=== PATIENT | male | born 1960 | race Caucasian/White ===

== ENCOUNTER 2018-04-16 09:07 | Emergency (ER) | payer MEDICAID ==
--- NOTE | 2018-04-16 09:38 | EDPHY ---
H & P Stated Complaint: hip replacement at [facility] 03/25 now with pain redness Time Seen by Provider: 04/16/18 09:17 HPI/ROS: CHIEF COMPLAINT: Left hip pain HISTORY OF PRESENT ILLNESS: The patient is a 57-year-old morbidly obese man who had this left hip replaced by Dr. Keith at [facility] 3 weeks ago. He states that he had been recovering well but has had increasing pain over the last 2 days. He thought that he simply over did it because he went on a further walk than usual 2 days ago. However he is becoming concerned about infection. There is some slight red streaking at his wound site which she states has been there are the entire time. He has not had any purulent drainage. He has not had a fever or sweats. He has experienced increased pain. REVIEW OF SYSTEMS: Constitutional: denies: chills, fever, recent illness, recent injury EENTM: denies: blurred vision, double vision, nose congestion Respiratory: denies: cough, shortness of breath Cardiac: denies: chest pain, irregular heart rate, lightheadedness, palpitations Gastrointestinal/Abdominal: denies: abdominal pain, diarrhea, nausea, vomiting, blood streaked stools Genitourinary: denies: dysuria, frequency, hematuria, pain Musculoskeletal: See HPI Skin: denies: lesions, rash, jaundice, bruising Neurological: denies: headache, numbness, paresthesia, tingling, dizziness, weakness Hematologic/Lymphatic: denies: blood clots, easy bleeding, easy bruising Immunologic/allergic: denies: HIV/AIDS, transplant EXAM: GENERAL: Morbidly obese, moderate distress HEAD: Atraumatic, normocephalic. EYES: Pupils equal round and reactive to light, extraocular movements intact, sclera anicteric, conjunctiva are normal. ENT: TMs normal, nares patent, oropharynx clear without exudates. Moist mucous membranes. NECK: Normal range of motion, supple without lymphadenopathy or JVD. LUNGS: Breath sounds clear to auscultation bilaterally and equal. No wheezes rales or rhonchi. HEART: Regular rate and rhythm without murmurs, rubs or gallops. ABDOMEN: Soft, nontender, normoactive bowel sounds. No guarding, no rebound. No masses appreciated. BACK: No CVA tenderness, no spinal tenderness, step-offs or deformities EXTREMITIES: Normal range of motion, no pitting or edema. No clubbing or cyanosis. NEUROLOGICAL: Cranial nerves II through XII grossly intact. Normal speech, normal gait. 5/5 strength, normal movement in all extremities, normal sensation PSYCH: Normal mood, normal affect. SKIN: Incision clean and dry and intact, slight erythema surrounding, firm but no fluctuance. Source: Patient - Personal History Current Tetanus Diphtheria and Acellular Pertussis (TDAP): Unsure - Medical/Surgical History Hx Asthma: No Hx Chronic Respiratory Disease: No Hx Diabetes: Yes Hx Cardiac Disease: No Hx Renal Disease: No Hx Cirrhosis: No Hx Alcoholism: No Hx HIV/AIDS: No Hx Splenectomy or Spleen Trauma: No Other PMH: HTN, arthritis, acid reflux, hernia l hip replacement - Family History Significant Family History: No pertinent family hx - Social History Smoking Status: Former smoker Alcohol Use: Sober Constitutional: Initial Vital Signs Temperature (C) 36.4 C 04/16/18 09:13 Heart Rate 100 04/16/18 09:13 Respiratory Rate 20 04/16/18 09:13 Blood Pressure 128/86 H 04/16/18 09:13 O2 Sat (%) 92 04/16/18 09:13 O2 Delivery Mode Room Air O2 (L/minute) 2 Allergies/Adverse Reactions: No Known Allergies Allergy (Verified 04/16/18 09:10) Home Medications: Medication Instructions Recorded Atorvastatin Calcium 40 mg PO 06/28/16 Cyclobenzaprine [Flexeril 10 MG 06/28/16 (*)] Hydrochlorothiazide [HCTZ (*)] 25 mg PO DAILY 06/28/16 Lisinopril [Zestril 40 mg (*)] 40 mg PO DAILY 06/28/16 Metformin HCl [Metformin 1000 mg] 1,000 mg PO 06/28/16 Tramadol HCl 50 mg PO 06/28/16 Medical Decision Making - Diagnostics Imaging Results: Imaging Impressions Extremity Ultrasound 04/16/18 09:30 Impression: 1. Postoperative collections compatible with hematoma or seroma superficial to the left hip as well as underlying the incision. Abscess/infectious etiology is felt to be less likely. If there is a high clinical concern for infection then consider ultrasound-guided aspiration for further characterization. Findings discussed with Filemon Sebastian M.D. at 10:46 hour, 04/16/2018. Extremity CT 04/16/18 09:35 Impression: 1. 3 collections over the left upper thigh anterolaterally as detailed above. These could all represent postoperative hematoma collections or seromas versus possibility of abscess. Clinical correlation recommended. If indicated, these can be aspirated with ultrasound guidance. 2. Left total hip replacement in good position and alignment. No fractures seen. Findings discussed with Filemon Sebastian M.D. at 12:53 hour, 04/16/2018. Imaging: Discussed imaging studies w/ call center representative Radiologist ED Course/Re-evaluation: 12:14 p.m. the patient's lab work is very reassuring overall. His ultrasound shows small fluid collections that are unlikely to be infections. I spoke with Dr. Keith's PA, Lauren, who agrees that further workup at this time is not indicated. He does recommend x-ray to ensure that there is no fracture. This will be accomplished with the CT scan which was ordered originally. He would like to follow up with the patient tomorrow the next day. He does not think that ultrasound-guided needle aspiration is indicated. patient is happy with this plan and declines further workup or testing at this time. 12:50 p.m. we discussed the patient's lab and imaging results. He is relieved. He is feeling much better. I encouraged rest and icing and he will follow up with his orthopedist in the next day or 2. He is eager to go home. Differential Diagnosis: Partial list of the Differential diagnosis considered include but were not limited to; surgical pain, seroma, hematoma, infection and although unlikely based on the history and physical exam, I also considered fracture, dislocation. I discussed these differential diagnoses and the plan with the patient as well as the usual and expected course. The patient understands that the diagnosis is provisional and that in medicine we are not always correct and that further workup is often warranted. Usual and customary warnings were given. All of the patient's questions were answered. The patient was instructed to return to the emergency department should the symptoms at all worsen or return, otherwise to followup with the physician as we discussed. - Data Points Laboratory Results: Laboratory Results 04/16/18 09:43 04/16/18 09:43 04/16/18 04/16/18 04/16/18 09:43 09:43 09:43 WBC RBC Hgb Hct MCV MCH MCHC RDW Plt Count MPV Neut % (Auto) Lymph % (Auto) Ocean % (Auto) Eos % (Auto) Baso % (Auto) Nucleat RBC Rel Count Absolute Neuts (auto) Absolute Lymphs (auto) Absolute Monos (auto) Absolute Eos (auto) Absolute Basos (auto) Absolute Nucleated RBC Immature Gran % Immature Gran # ESR PT 13.5 SEC SEC (12.0-15.0) INR 1.01 (0.83-1.16) APTT 25.7 SEC SEC (23.0-38.0) VBG Lactic Acid 2.5 mmol/L H mmol/L (0.7-2.1) Sodium 137 mEq/L mEq/L (135-145) Potassium 4.4 mEq/L mEq/L (3.3-5.0) Chloride 100 mEq/L mEq/L (97-110) Carbon Dioxide 27 mEq/l mEq/l (22-31) Anion Gap 10 mEq/L mEq/L (8-16) BUN 9 mg/dL mg/dL (7-23) Creatinine 0.7 mg/dL mg/dL (0.7-1.3) Estimated GFR > 60 Glucose 109 mg/dL H mg/dL (70-100) Calcium 8.8 mg/dL mg/dL (8.5-10.4) C-Reactive Protein 7.3 mg/L mg/L (<10.0) 04/16/18 09:43 WBC 8.77 10^3/uL 10^3/uL (3.80-9.50) RBC 4.92 10^6/uL 10^6/uL (4.40-6.38) Hgb 14.4 g/dL g/dL (13.7-17.5) Hct 41.4 % % (40.0-51.0) MCV 84.1 fL fL (81.5-99.8) MCH 29.3 pg pg (27.9-34.1) MCHC 34.8 g/dL g/dL (32.4-36.7) RDW 14.6 % % (11.5-15.2) Plt Count 311 10^3/uL 10^3/uL (150-400) MPV 8.8 fL fL (8.7-11.7) Neut % (Auto) 64.9 % % (39.3-74.2) Lymph % (Auto) 22.0 % % (15.0-45.0) Ocean % (Auto) 7.4 % % (4.5-13.0) Eos % (Auto) 4.9 % % (0.6-7.6) Baso % (Auto) 0.3 % % (0.3-1.7) Nucleat RBC Rel Count 0.0 % % (0.0-0.2) Absolute Neuts (auto) 5.69 10^3/uL 10^3/uL (1.70-6.50) Absolute Lymphs (auto) 1.93 10^3/uL 10^3/uL (1.00-3.00) Absolute Monos (auto) 0.65 10^3/uL 10^3/uL (0.30-0.80) Absolute Eos (auto) 0.43 10^3/uL H 10^3/uL (0.03-0.40) Absolute Basos (auto) 0.03 10^3/uL 10^3/uL (0.02-0.10) Absolute Nucleated RBC 0.00 10^3/uL 10^3/uL (0-0.01) Immature Gran % 0.5 % % (0.0-1.1) Immature Gran # 0.04 10^3/uL 10^3/uL (0.00-0.10) ESR 19 MM/HR MM/HR (0-20) PT INR APTT VBG Lactic Acid Sodium Potassium Chloride Carbon Dioxide Anion Gap BUN Creatinine Estimated GFR Glucose Calcium C-Reactive Protein Departure - Departure Disposition: Home, Routine, Self-Care Clinical Impression: Left hip pain Condition: Fair Instructions: Hip Pain (ED) Referrals: AGNES MULLEN [Other] - As per Instructions Dr Sagar [Other] - 1-2 days without fail
[2018-04-16 09:57] LABS: PLATELET COUNT 311 10^3/uL (150-400)
[2018-04-16 10:06] LABS: INR 1.01 (0.83-1.16); PROTIME(PATIENT) 13.5 SEC (12.0-15.0)
[2018-04-16] MEDS ORDERED: IOPAMIDOL (ISOVUE-300) 100 ML BTL ONE ×2 (10:54→11:51)
[2018-04-16 13:04] VITALS: BP 126/96
== END 2018-04-16 13:19 | disposition home or self-care (01) ==
DX: G89.18 Other acute postprocedural pain (principal); M25.552 Pain in left hip; I10 Essential (primary) hypertension; E11.9 Type 2 diabetes mellitus without complications; Z79.84 Long term (current) use of oral hypoglycemic drugs; Z87.891 Personal history of nicotine dependence
CPT/HCPCS: Q9967

== ENCOUNTER 2018-11-28 08:20 | Day surgery (SDC) | payer MEDICAID ==
[2018-11-28] MEDS ORDERED: ceFAZolin 2 GM/DEXTROSE 100 ML IV ONE (09:40)
[2018-11-28] MEDS ORDERED: ACETAMINOPHEN 500 MG TAB PO ONE (09:40)
[2018-11-28] MEDS ORDERED: BUPIVACAINE 0.5% 30 ML SDV ONE (09:46)
[2018-11-28] MEDS ORDERED: LR 1,000 ML IV ONE (09:46)
[2018-11-28] MEDS ORDERED: ROPIVACAINE HCL 20 MG/10 ML INJ EP ONE (09:46)
[2018-11-28] MEDS ORDERED: CEFAZOLIN 2 GM/DEXTROSE/100 ML BAG IV ONE (10:01)
--- NOTE | 2018-11-28 10:39 | PDHPUP ---
History & Physical Update H&P update statement: This history and physical update is based on an assessment of the patient which was completed after admission or registration (within 24 hours), but prior to the surgery/procedure. H&P update: H&P reviewed & patient examined, no change in patient's condition since H&P completed
[2018-11-28] MEDS ORDERED: MIDAZOLAM 2 MG/2 ML VIAL IVP ONE (10:43)
--- NOTE | 2018-11-28 10:43 | PDANEPAE ---
ANE History of Present Illness Left carpel tunnel ANE Past Medical History - Cardiovascular History Hx Hypertension: Yes Hx Arrhythmias: No Hx Chest Pain: No Hx Coronary Artery / Peripheral Vascular Disease: No Hx CHF / Valvular Disease: No Hx Palpitations: No - Pulmonary History Hx COPD: No Hx Asthma/Reactive Airway Disease: No Hx Recent Upper Respiratory Infection: No Hx Oxygen in Use at Home: No Hx Sleep Apnea: No Sleep Apnea Screening Result - Last Documented: Positive Pulmonary History Comment: EXERCISE INDUCED ASTHMA HAS INHALER SELDOM USED - Neurologic History Hx Cerebrovascular Accident: No Hx Seizures: No Hx Dementia: No - Endocrine History Hx Diabetes: Yes Endocrine History Comment: NIDDM. NOCTURIA - Renal History Hx Renal Disorders: No - Liver History Hx Hepatic Disorders: No - Neurological & Psychiatric Hx Hx Neurological and Psychiatric Disorders: No - Cancer History Hx Cancer: No - Congenital Disorder History Hx Congenital Disorders: No - GI History Hx Gastrointestinal Disorders: Yes Gastrointestinal History Comment: GERD - Other Health History Other Health History: OBESITY. OSTEOARTHRITIS. N/T LINDA FEET. SPINAL STENOSIS. MISSING TEEETH - Chronic Pain History Chronic Pain: Yes (RT ANKLE,FEET,RT HIP) - Surgical History Prior Surgeries: LUMBAR FUSION 2016. LT TOTAL HIP 2018. Hernia at age 7 ANE Review of Systems Review of Systems: - Exercise capacity METS (RN): 4 METS ANE Patient History - Allergies Allergies/Adverse Reactions: No Known Allergies Allergy (Verified 04/16/18 09:10) - Home Medications Home Medications: Cyclobenzaprine [Flexeril 10 MG (*)] BID 06/28/16 [Last Taken Unknown] Hydrochlorothiazide [HCTZ (*)] 25 mg PO DAILY 06/28/16 [Last Taken Unknown] Lisinopril [Zestril 40 mg (*)] 40 mg PO DAILY 06/28/16 [Last Taken Unknown] Metformin HCl [Metformin 1000 mg] 1,000 mg PO BID 06/28/16 [Last Taken Unknown] Tramadol HCl 50 mg PO BID 06/28/16 [Last Taken Unknown] Amlodipine Besylate DAILY 11/21/18 [Last Taken Unknown] Gabapentin BID 11/21/18 [Last Taken Unknown] Ibuprofen BID 11/21/18 [Last Taken Unknown] Omeprazole DAILY 11/21/18 [Last Taken Unknown] - NPO status NPO Status: no food or drink >8 hours NPO Since - Liquids (Date): 11/28/18 NPO Since - Liquids (Time): 06:30 NPO Since - Solids (Date): 11/27/18 NPO Since - Solids (Time): 21:00 - Anes Hx Anes Hx: no prior problems, post operative nausea - Smoking Hx Smoking Status: Former smoker - Alcohol Use Alcohol Use: Other (2/day) - Family Anes Hx Family Hx Anesthesia Complications: None ANE Labs/Vital Signs - Labs Result Diagrams: 11/28/18 09:50 - Vital Signs Blood Pressure: 151/92 Heart Rate: 100 Respiratory Rate: 15 O2 Sat (%): 89 Height: 170.18 cm Weight: 136.078 kg ANE Physical Exam - Airway Neck exam: decreased ROM Mallampati Score: Class 3 Mouth exam: normal dental/mouth exam - Pulmonary Pulmonary: no respiratory distress, no rales or rhonchi - Cardiovascular Cardiovascular: regular rate and rhythym, no murmur, rub, or gallop - ASA Status ASA Status: III ANE Anesthesia Plan Anesthesia Plan: MAC Total IV Anesthesia: Yes
[2018-11-28] MEDS ORDERED: MIDAZOLAM 2 MG/2 ML VIAL ONE (10:46)
[2018-11-28] MEDS ORDERED: fentaNYL 100 MCG/2 ML INJ ONE (10:57)
[2018-11-28] MEDS ORDERED: PROPOFOL/EMULSION 500 MG/50 ML BOTTLE IV ONE (10:57)
[2018-11-28] MEDS ORDERED: LIDOCAINE 1% 300 MG/30 ML SDV ONE (11:09)
[2018-11-28] MEDS ORDERED: LIDOCAINE 2% 5 ML SDV ONE (11:09)
[2018-11-28] MEDS ORDERED: NALOXONE HCL 0.4 MG/ML INJ IVP PRN (11:53)
[2018-11-28] MEDS ORDERED: ACETAMINOPHEN 500 MG TAB PO PRN (11:53)
[2018-11-28] MEDS ORDERED: ONDANSETRON 4 MG/2 ML VIAL IVP PRN (11:53)
[2018-11-28] MEDS ORDERED: fentaNYL 100 MCG/2 ML INJ IVP PRN (11:53)
[2018-11-28] MEDS ORDERED: HYDROCODONE/APAP 5/325 TAB PO PRN (12:01)
[2018-11-28] MEDS ORDERED: KETOROLAC 30 MG/1 ML SDV IVP ONE (12:03)
--- NOTE | 2018-11-28 12:26 | GOP ---
[f rep st] OPERATIVE REPORT DATE OF OPERATION: 11/28/2018 SURGEON: Rohith Stanley MD EAR NOSE THROAT PHYSICIAN: Francisca Dimas PA-C. ANESTHESIA: Deep IV sedation. 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 PROCEDURE PERFORMED: Left carpal tunnel release. FINDINGS: Successful carpal tunnel release. SPECIMENS: None. ESTIMATED BLOOD LOSS: Less than 5 cc. DESCRIPTION OF PROCEDURE: After informed consent was obtained from the patient, the patient was brou ght to the operating room and was placed in supine position on the operating table. A formal time-ou t was performed, identifying the patient by name, medical record number and date of . Preoperat william antibiotics were given. Deep IV sedation was induced by anesthesia and the left arm was extended onto a hand table. A tourniquet was placed and the arm was prepped and draped in normal sterile fas hion. A 1 cm linear incision was marked extending distally from the most distal wrist crease in line with the 4th webspace onto the hand. 5 cc of a mixture of 0.25% Marcaine with epinephrine and 1% li docaine was infiltrated into the skin for analgesia and hemostasis. The arm was then exsanguinated a nd the tourniquet was brought up to 280 mmHg. A skin incision was made using a 15 blade and the subc utaneous tissues were shrunk using bipolar electrocautery. The superficial palmar fascia was opened sharply and the most proximal portion of the palmaris brevis muscle was also opened. The flexor reti naculum was visualized and opened sharply exposing the median nerve beneath. Sharp scissors were the n used to divide the flexor retinaculum proximally into the wrist and distally into the hand. A smal l dissector was used to feel along the median nerve to be sure that it was completely decompressed. At this point, a few small bleeders were coagulated using bipolar electrocautery. The tourniquet was brought down after 9 minutes of total tourniquet time. The wound was copiously irrigated using baci tracin irrigation. Once the wound was dry, the skin was closed using interrupted 3-0 nylon vertical mattress sutures. Sterile dressing was placed and the arm was covered with an Jaylan wrap. The patient tolerated this procedure well with no complications. BRIEF CLINICAL HISTORY: The patient is a 58-year-old man who presents with left hand numbness. He w as confirmed by EMG to have left-sided median neuropathy at the carpal tunnel. He has tried conserva tive management, including extension splints, but ultimately his symptoms failed to resolve. He pres ents today for carpal tunnel release. FLUIDS AND URINE OUTPUT: Fluids were per the anesthesia record. Urine output was not recorded. DRAINS: None. /[id number]/MODL
[2018-11-28] MEDS ORDERED: KETOROLAC 30 MG/1 ML SDV ONE (13:03)
--- NOTE | 2018-11-28 13:29 | POSTANESTH ---
Post Anesthetic Evaluation Cardiovascular Status: Normal, Stable Respiratory Status: Similar to Pre-op Cond. Level of Consciousness/Mental Status: Can Participate in Eval Pain Control: Adequate, Prn Tx Ordered Nausea/Vomiting Control: Adequate, Prn Tx Ordered Complications Possibly Related to Anesthesia: None Noted
[2018-11-28 14:28] VITALS: BP 137/86
== END 2018-11-28 13:51 | disposition home or self-care (01) ==
LOC: FSGY 08:20
PROVIDERS: ATTEND Neurological Surgery
PROC: 01N50ZZ Release Median Nerve, Open Approach (ICD-10-PCS; principal; 2018-11-28 10:15)
DX: G56.03 Carpal tunnel syndrome, bilateral upper limbs (principal); M48.07 Spinal stenosis, lumbosacral region; E66.09 Other obesity due to excess calories; I10 Essential (primary) hypertension; E11.9 Type 2 diabetes mellitus without complications; Z96.642 Presence of left artificial hip joint; Z87.891 Personal history of nicotine dependence; Z98.1 Arthrodesis status; Z68.42 Body mass index [BMI] 45.0-49.9, adult
CPT/HCPCS: 82947-QW; J0690; J1885; J2250; J2704; J2795; J3010